=== PATIENT | male | born 1950 | race Caucasian/White ===

== ENCOUNTER 2019-02-03 19:40 | Emergency (ER) | payer MEDICARE, OTHER ==
--- NOTE | 2019-02-03 19:51 | EDM.PDOC ---
ED HPI GENERAL MEDICAL PROBLEM - General Chief Complaint: Upper Extremity Injury/Pain Stated Complaint: LACERATION Time Seen by Provider: 02/03/19 19:46 Source of Information: Reports: Patient History Limitations: Reports: No Limitations - History of Present Illness INITIAL COMMENTS - FREE TEXT/NARRATIVE: 68 YO WM presents to ER with avulsion laceration to tip of right thumb. Pt reports he was slicing vegetables and accidentally cut the tip of the finger. Pt denies any functional deficits but came to ER due to inability to stop the bleeding. Pt reports his tetanus immunization is greater than 10 years. Pt denies any other injury. Onset: Today Location: Reports: Upper Extremity, Right Quality: Reports: Ache Severity: Mild Improves with: Reports: None Worsens with: Reports: None Associated Symptoms: Reports: No Other Symptoms Review of Systems - Review of Systems Review Of Systems: See Below Constitutional: Reports: No Symptoms Eyes: Reports: No Symptoms Ears: Reports: No Symptoms Nose: Reports: No Symptoms Mouth/Throat: Reports: No Symptoms Respiratory: Reports: No Symptoms Cardiovascular: Reports: No Symptoms GI/Abdominal: Reports: No Symptoms Genitourinary: Reports: No Symptoms Musculoskeletal: Reports: No Symptoms Skin: Reports: Wound (avulsion laceration to tip of right thumb) Neurological: Reports: No Symptoms ED EXAM, GENERAL - Physical Exam Exam: See Below Exam Limited By: No Limitations General Appearance: Alert, WD/WN, No Apparent Distress Head: Atraumatic, Normocephalic Neck: Normal Inspection, Supple, Non-Tender, Full Range of Motion Respiratory/Chest: No Respiratory Distress, Lungs Clear, Normal Breath Sounds, No Accessory Muscle Use, Chest Non-Tender Cardiovascular: Normal Peripheral Pulses, Regular Rate, Rhythm, No Edema, No Gallop, No JVD, No Murmur, No Rub GI/Abdominal: Normal Bowel Sounds, Soft, Non-Tender, No Organomegaly, No Distention, No Abnormal Bruit, No Mass Back Exam: Normal Inspection, Full Range of Motion, NT Extremities: Normal Inspection, Normal Range of Motion, Non-Tender, Normal Capillary Refill, No Pedal Edema Neurological: Alert, Oriented, CN II-XII Intact, Normal Cognition, Normal Gait, Normal Reflexes, No Motor/Sensory Deficits Psychiatric: Normal Affect, Normal Mood Skin Exam: Wound/Incision (avulsion laceration to tip of right thumb) Departure - Departure Time of Disposition: 19:51 Disposition: Home, Self-Care 01 Condition: Good Clinical Impression: Avulsion of finger tip Qualifiers: Encounter type: initial encounter Qualified Code(s): S61.209A - Unspecified open wound of unspecified finger without damage to nail, initial encounter - Discharge Information Instructions: Wound Care, Adult, Deep Skin Avulsion Referrals: Sarah Kim MD [Primary Care Provider] - Forms: ED Department Discharge Additional Instructions: 1. discharge home 2. pressure dressing to right thumb 3. wound care instruction given 4. follow up with PCP for further evaluation and treatment 5. return to ER for worsening symptoms - Assessment/Plan Assessment:: 1. avulsion laceration to tip of right thumb- no sutures Plan: 1. discharge home 2. pressure dressing to right thumb 3. wound care instruction given 4. follow up with PCP for further evaluation and treatment 5. return to ER for worsening symptoms
[2019-02-03] MEDS: Diphtheria,Pertussis(Acell),Tetanus Vaccine 0.5 ML SDV IM ONE (20:00)
== END 2019-02-03 20:25 | disposition home or self-care (01) ==
LOC: KA.ED 19:40
DX: S61.011A Laceration without foreign body of right thumb without damage to nail, initial encounter (principal); W26.9XXA Contact with unspecified sharp object(s), initial encounter; Z23 Encounter for immunization
CPT/HCPCS: 90471; 90715; 96372; 99283

== ENCOUNTER 2022-02-09 15:57 | Emergency (ER) | payer OTHER, MEDICARE ==
[2022-02-09] MEDS ORDERED: Lidocaine 2% with EPINEPHrine 1:200,000 10 ML SDV ONE (16:10)
[2022-02-09] MEDS ORDERED: ceFAZolin 1 GM Vial IM ONE (16:29)
== END 2022-02-09 17:50 | disposition home or self-care (01) ==
LOC: KA.ED 15:57
DX: S62.663A Nondisplaced fracture of distal phalanx of left middle finger, initial encounter for closed fracture (principal); I48.91 Unspecified atrial fibrillation; E11.9 Type 2 diabetes mellitus without complications; Z79.84 Long term (current) use of oral hypoglycemic drugs; Z79.899 Other long term (current) drug therapy; W23.1XXA Caught, crushed, jammed, or pinched between stationary objects, initial encounter
CPT/HCPCS: 73140-F2; 96372; 99283-25; J0690

== ENCOUNTER 2022-02-10 00:42 | Emergency (ER) | payer OTHER, MEDICARE ==
[2022-02-10 00:55] VITALS: BP 184/106; PULSE 73
[2022-02-10] MEDS: Lidocaine 1% with EPINEPHrine 1:100,000 10 ML MDV INJECT ONE (01:00)
[2022-02-10] MEDS: Lidocaine 1% with EPINEPHrine 1:100,000 10 ML MDV ONE (01:27)
== END 2022-02-10 01:22 | disposition home or self-care (01) ==
LOC: KA.ED 00:42
DX: S68.113A Complete traumatic metacarpophalangeal amputation of left middle finger, initial encounter (principal); I48.91 Unspecified atrial fibrillation; E11.9 Type 2 diabetes mellitus without complications; Z79.01 Long term (current) use of anticoagulants; Z48.00 Encounter for change or removal of nonsurgical wound dressing; Z79.899 Other long term (current) drug therapy; W26.8XXA Contact with other sharp object(s), not elsewhere classified, initial encounter
CPT/HCPCS: 99283

== ENCOUNTER 2022-06-17 11:37 | Emergency (ER) | payer MEDICARE ==
[2022-06-17 12:35] LABS: CHLORIDE,CL 95 mmol/L (98-107); SODIUM,NA 130 mmol/L (136-145)
[2022-06-17 12:37] LABS: ESTIMATED GFR 76 mL/min (>=60)
== END 2022-06-17 14:25 | disposition home or self-care (01) ==
LOC: KA.ED 11:37
DX: M17.11 Unilateral primary osteoarthritis, right knee (principal); E11.9 Type 2 diabetes mellitus without complications; I48.91 Unspecified atrial fibrillation; F41.9 Anxiety disorder, unspecified; F32.A Depression, unspecified; Z79.899 Other long term (current) drug therapy; Z79.84 Long term (current) use of oral hypoglycemic drugs
CPT/HCPCS: 36415; 71045; 73560-RT; 80053; 83605; 83880; 84484; 85025; 85379; 87040; 93010; 99284

== ENCOUNTER 2023-07-24 23:45 | Inpatient (IN) | payer MEDICARE, OTHER ==
[2023-07-25] MEDS ORDERED: Sodium Chloride 0.9% 10 ML Syringe FLUSH PRN (00:11)
[2023-07-25] MEDS ORDERED: Sodium Chloride 0.9% 1,000 ML IV ONE (00:11)
[2023-07-25] MEDS ORDERED: Diltiazem 25 MG/5 ML SDV IVPUSH ONE (00:23)
[2023-07-25 01:02] LABS: BASOPHILS ABSOLUTE AUTO 0.03 10^3/uL (0.00-0.10); BASOPHILS PERCENT AUTO 0.3 % (0.0-1.0); EOSINOPHILS ABSOLUTE AUTO 0.24 10^3/uL (0.10-0.30); EOSINOPHILS PERCENT AUTO 2.4 % (1.0-3.0); HEMATOCRIT 43.7 % (40.0-52.0); LYMPHOCYTES ABSOLUTE AUTO 1.26 10^3/uL (1.00-4.00); LYMPHOCYTES PERCENT AUTO 12.5 % (20.0-40.0); MEAN CORPUSCULAR HEMOGLOBIN 31.9 pg (27.0-31.0); MEAN CORPUSCULAR VOLUME 99.5 fL (82.0-92.0); MONOCYTES ABSOLUTE AUTO 0.76 10^3/uL (0.10-0.80); MONOCYTES PERCENT AUTO 7.5 % (2.0-8.0); NEUTROPHILS ABSOLUTE AUTO 7.72 10^3/uL (2.50-7.00); NEUTROPHILS PERCENT AUTO 76.3 % (50.0-70.0); PLATELET COUNT,PLT 265 10^3/uL (150-400); RED BLOOD CELL COUNT 4.39 10^6/uL (4.50-6.00); RED CELL DISTRIBUTION WIDTH 13.1 % (11.5-14.5); WHITE BLOOD CELL COUNT,WBC 10.11 10^3/uL (5.00-10.00)
[2023-07-25 01:17] LABS: ALANINE AMINOTRANSFERASE,ALT 14 U/L (14-63); ALBUMIN 2.99 g/dL (3.40-5.00); ALKALINE PHOSPHATASE 76 U/L (46-116); ANION GAP 12.6 mmol/L (5-15); ASPARTATE AMNIOTRANSFERASE,AST 15 U/L (15-37); BILIRUBIN TOTAL 0.5 mg/dL (0.2-1.0); CARBON DIOXIDE,CO2 29.9 mmol/L (21.0-32.0); CHLORIDE,CL 100 mmol/L (98-107); CREATININE 1.15 mg/dL (0.51-1.17); GLUCOSE RANDOM 213 mg/dL (70-140); POTASSIUM,K 4.5 mmol/L (3.5-5.1); PROTEIN TOTAL,TP 7.2 g/dL (6.4-8.2); SODIUM,NA 138 mmol/L (136-145)
[2023-07-25 01:18] LABS: ESTIMATED GFR 68 mL/min (>=60)
[2023-07-25 01:24] LABS: BLOOD UREA NITROGEN,BUN 26 mg/dL (7-18)
[2023-07-25 01:28] LABS: B-TYPE NATRIURETIC PEPTIDE,BNP 59 pg/mL (0-100)
[2023-07-25] MEDS ORDERED: Bumetanide 1 MG/4 ML MDV IVPUSH ONE (02:01)
[2023-07-25] MEDS ORDERED: busPIRone 10 MG Tab PO PRN (04:25)
[2023-07-25] MEDS ORDERED: Triamcinolone Acetonide 0.1% Crm 15 GM Tube TOP PRN (04:34)
[2023-07-25] MEDS ORDERED: Ondansetron 4 MG Tab.DIS PO PRN (05:09)
[2023-07-25] MEDS ORDERED: Acetaminophen/HYDROcodone 325-5 MG Tab PO SCH (06:00)
[2023-07-25] MEDS ORDERED: Glucagon,Human Recombinant 1 MG Vial IM PRN (06:14)
[2023-07-25] MEDS ORDERED: 50% Dextrose in Water 50 ML Syringe IVPUSH PRN (06:14)
[2023-07-25 07:14] LABS: BASOPHILS ABSOLUTE AUTO 0.04 10^3/uL (0.00-0.10); BASOPHILS PERCENT AUTO 0.4 % (0.0-1.0); EOSINOPHILS PERCENT AUTO 3.3 % (1.0-3.0); HEMATOCRIT 40.8 % (40.0-52.0); HEMOGLOBIN 13.2 g/dL (13.0-17.0); IMMATURE GRAN ABSOLUTE AUTO 0.07 10^3/uL (0.00-0.50); IMMATURE GRAN PERCENT AUTO 0.8 % (0.0-5.0); LYMPHOCYTES ABSOLUTE AUTO 2.14 10^3/uL (1.00-4.00); LYMPHOCYTES PERCENT AUTO 23.2 % (20.0-40.0); MEAN CORPUSCULAR HEMOGLOBIN 31.9 pg (27.0-31.0); MEAN CORPUSCULAR HGB CONC 32.4 g/dL (32.0-36.0); MEAN CORPUSCULAR VOLUME 98.6 fL (82.0-92.0); MEAN PLATELET VOLUME 9.9 fL (7.4-10.4); MONOCYTES ABSOLUTE AUTO 0.76 10^3/uL (0.10-0.80); MONOCYTES PERCENT AUTO 8.3 % (2.0-8.0); PLATELET COUNT,PLT 254 10^3/uL (150-400); RED BLOOD CELL COUNT 4.14 10^6/uL (4.50-6.00); RED CELL DISTRIBUTION WIDTH 13.2 % (11.5-14.5); WHITE BLOOD CELL COUNT,WBC 9.21 10^3/uL (5.00-10.00)
[2023-07-25 07:28] LABS: ANION GAP 10.9 mmol/L (5-15); CALCIUM 8.5 mg/dL (8.7-10.3); CARBON DIOXIDE,CO2 30.8 mmol/L (21.0-32.0); CREATININE 1.04 mg/dL (0.51-1.17); EST CRCL DRUG DOSING (CG) 79.98 mL/min; POTASSIUM,K 3.7 mmol/L (3.5-5.1)
[2023-07-25] MEDS: Insulin Lispro 100 Unit/ML 3 ML KwikPen SUBCUT SCH ×3 (07:54→17:58)
[2023-07-25] MEDS: Metoprolol Succinate 50 MG Tab.ER PO SCH (08:22)
[2023-07-25] MEDS: Multivitamins with Minerals/Iron/Folic Acid/Lycopene Tab PO SCH (08:22)
[2023-07-25] MEDS: Bumetanide 1 MG Tab PO SCH ×2 (08:22→20:31)
[2023-07-25] MEDS: ClonazePAM 0.5 MG Tab PO SCH ×2 (08:23→20:34)
[2023-07-25] MEDS: Cholecalciferol (Vitamin D3) 25 MCG Tab PO SCH (08:23)
[2023-07-25] MEDS: Gabapentin 100 MG Cap PO SCH ×3 (08:23→20:32)
[2023-07-25] MEDS: Allopurinol 100 MG Tab PO SCH (08:23)
[2023-07-25] MEDS: Docusate Sodium 100 MG Cap PO SCH ×2 (08:23→20:34)
[2023-07-25] MEDS: Calcium Citrate/Vitamin D3 315 MG-250 Unit Tab PO SCH (08:23)
[2023-07-25] MEDS: Citalopram 20 MG Tab PO SCH (08:23)
[2023-07-25] MEDS ORDERED: LIRAGLUTIDE 3 MG/0.5 ML SQ SCH (09:00)
[2023-07-25] MEDS: Nystatin Topical Powder 15 GM Bottle TOP SCH ×3 (09:41→20:28)
[2023-07-25] MEDS ORDERED: Metolazone 2.5 MG Tab PO ONE (10:24)
[2023-07-25] MEDS ORDERED: Acetaminophen/HYDROcodone 325-5 MG Tab PO PRN (10:30)
[2023-07-25] MEDS: METHENAMINE HIPPURATE 1 GM PO SCH ×2 (15:21→20:29)
[2023-07-25] MEDS ORDERED: Potassium Chloride 20 MEQ Tab.ER PO SCH (21:00)
[2023-07-25] MEDS ORDERED: Pantoprazole 40 MG Tab.CR PO SCH (21:00)
[2023-07-25] MEDS ORDERED: Rivaroxaban 10 MG Tab PO SCH (21:00)
[2023-07-25] MEDS ORDERED: rOPINIRole 1 MG Tab PO SCH (21:00)
[2023-07-25] MEDS ORDERED: atorvaSTATin 10 MG Tab PO SCH (21:00)
[2023-07-25] MEDS ORDERED: ENZALUTAMIDE 40 MG PO SCH (21:00)
[2023-07-26] MEDS: Insulin Lispro 100 Unit/ML 3 ML KwikPen SUBCUT SCH ×3 (08:04→18:03)
[2023-07-26 08:23] LABS: TSH ULTRASENSITIVE 3.163 uIU/mL (0.340-4.820)
[2023-07-26 08:29] LABS: HEMOGLOBIN A1C 7.4 % (4.3-5.7)
[2023-07-26] MEDS: Cholecalciferol (Vitamin D3) 25 MCG Tab PO SCH (09:02)
[2023-07-26] MEDS: Bumetanide 1 MG Tab PO SCH (09:03)
[2023-07-26] MEDS: Citalopram 20 MG Tab PO SCH (09:03)
[2023-07-26] MEDS: Gabapentin 100 MG Cap PO SCH ×2 (09:03→14:11)
[2023-07-26] MEDS: Multivitamins with Minerals/Iron/Folic Acid/Lycopene Tab PO SCH (09:03)
[2023-07-26] MEDS: Metoprolol Succinate 50 MG Tab.ER PO SCH (09:03)
[2023-07-26] MEDS: Calcium Citrate/Vitamin D3 315 MG-250 Unit Tab PO SCH (09:04)
[2023-07-26] MEDS: Allopurinol 100 MG Tab PO SCH (09:04)
[2023-07-26] MEDS: METHENAMINE HIPPURATE 1 GM PO SCH (09:04)
[2023-07-26] MEDS: Docusate Sodium 100 MG Cap PO SCH (09:04)
[2023-07-26] MEDS: Nystatin Topical Powder 15 GM Bottle TOP SCH ×2 (09:04→17:09)
[2023-07-26] MEDS: ClonazePAM 0.5 MG Tab PO SCH (09:04)
[2023-07-26] MEDS ORDERED: Bumetanide 1 MG/4 ML MDV IVPUSH SCH (10:34)
== END 2023-07-26 18:45 | DRG 291 ==
LOC: KA.ED 23:45 → UNDOADMIN 07-25 02:30 → KA.MS 07-25 02:30
PROVIDERS: ADMIT Internal Medicine; ATTEND Family Medicine
DX: I11.0 Hypertensive heart disease with heart failure (principal); I50.33 Acute on chronic diastolic (congestive) heart failure; Z68.43 Body mass index [BMI] 50.0-59.9, adult; I50.9 Heart failure, unspecified; I50.813 Acute on chronic right heart failure; L89.329 Pressure ulcer of left buttock, unspecified stage; F32.A Depression, unspecified; F41.9 Anxiety disorder, unspecified; I48.91 Unspecified atrial fibrillation; C61 Malignant neoplasm of prostate; E66.01 Morbid (severe) obesity due to excess calories; E11.40 Type 2 diabetes mellitus with diabetic neuropathy, unspecified; M10.9 Gout, unspecified; M17.0 Bilateral primary osteoarthritis of knee; E78.00 Pure hypercholesterolemia, unspecified; R26.9 Unspecified abnormalities of gait and mobility; R29.6 Repeated falls; Z79.01 Long term (current) use of anticoagulants; Z20.822 Contact with and (suspected) exposure to COVID-19; E11.9 Type 2 diabetes mellitus without complications; Z79.2 Long term (current) use of antibiotics; Z87.440 Personal history of urinary (tract) infections; Z97.8 Presence of other specified devices; Z87.891 Personal history of nicotine dependence; Z79.84 Long term (current) use of oral hypoglycemic drugs; Z79.899 Other long term (current) drug therapy
CPT/HCPCS: 36415; 71045; 80048; 80053; 80061; 82947; 83036; 83880; 84443; 84484; 85025; 93005; 96374; 97161-GP; 99285-25; A9270-GY; J1815-GY; J3490; Q3014; U0002